=== PATIENT | female | born 1990 | race Caucasian/White ===

== ENCOUNTER 2017-02-16 17:29 | Emergency (ER) | payer SELFPAY ==
[~2017-02-16] VITALS: Ht 157.5 cm; Wt 61.0 kg
[2017-02-16] MEDS ORDERED: SODIUM CHLORIDE 0.9% 1,000 ML IV ONE (18:39)
[2017-02-16 19:44] LABS: BASOPHILS % 0.9 % (0.0-2.0); EOSINOPHILS % 0.5 % (0.0-5.0); HEMATOCRIT. 42.4 % (36.0-48.0); LYMPHOCYTES % 22.5 % (20.0-50.0); MEAN CORPUSCULAR HEMOGLOBIN 33.9 pg (28.0-32.0); MEAN PLATELET VOLUME 8.2 fl (7.4-10.4); MONOCYTES % 6.7 % (2.0-8.0); NEUTROPHILS % 69.4 % (40.0-76.0); PLATELET 246 x1000/uL (130-400); RED BLOOD CELL COUNT 4.42 mill/uL (4.2-5.4); RED CELL DISTRIBUTION WIDTH 12.4 % (11.6-14.6)
[2017-02-16 19:59] LABS: CARBON DIOXIDE 27 mEq/L (21-32); CHLORIDE 109 mEq/L (98-107)
[2017-02-16 20:00] LABS: TROPONIN I < 0.02 ng/mL (0.00-0.04)
[2017-02-16] MEDS ORDERED: POTASSIUM CHLORIDE 20MEQ TABLET SR PO NR (20:15)
[2017-02-16 20:17] LABS: HCG SCREEN NEGATIVE
[2017-02-16 21:09] VITALS: BP 138/51
== END 2017-02-16 21:19 | disposition home or self-care (01) ==
LOC: ER 18:58
DX: E87.6 Hypokalemia (principal); R55 Syncope and collapse; J45.909 Unspecified asthma, uncomplicated; F12.10 Cannabis abuse, uncomplicated
CPT/HCPCS: 36415; 80053; 84484; 84703; 85025; 93005; 99285; J7030; Z7610

== ENCOUNTER 2017-08-23 19:15 | Emergency (ER) | payer SELFPAY ==
[~2017-08-23] VITALS: Ht 152.4 cm; Wt 42.0 kg
[2017-08-23 20:18] LABS: CHLORIDE 102 mEq/L (98-107)
[2017-08-23 20:19] LABS: BASOPHILS % 0.6 % (0.0-2.0); EOSINOPHILS % 0.3 % (0.0-5.0); HEMATOCRIT. 39.8 % (36.0-48.0); HEMOGLOBIN. 14.4 g/dL (12.0-16.0); INR 1.2; LYMPHOCYTES % 18.2 % (20.0-50.0); MEAN CORPUSCULAR HEMOGLOBIN 34.1 pg (28.0-32.0); MEAN CORPUSCULAR VOLUME 93.9 fL (81.0-99.0); MEAN PLATELET VOLUME 8.2 fl (7.4-10.4); MONOCYTES % 6.3 % (2.0-8.0); NEUTROPHILS % 74.6 % (40.0-76.0); PLATELET 315 x1000/uL (130-400); RED BLOOD CELL COUNT 4.24 mill/uL (4.2-5.4); RED CELL DISTRIBUTION WIDTH 11.3 % (11.6-14.6)
[2017-08-23 20:20] LABS: HCG SCREEN POSITIVE
[2017-08-23] MEDS ORDERED: SODIUM CHLORIDE 0.9% 1,000 ML IV ONE (20:23)
[2017-08-23] MEDS ORDERED: ONDANSETRON HCL 4MG/2ML VIAL IV ONE (20:30)
[2017-08-23] MEDS ORDERED: MAGNESIUM/ALUMINUM HYDROXIDE/SIMETHICONE 30ML UDC PO ONE (22:45)
[2017-08-23] MEDS ORDERED: FAMOTIDINE 20MG TABLET PO ONE (22:45)
[2017-08-24 00:22] LABS: CLARITY URINE CLOUDY (CLEAR); COLOR URINE YELLOW (YELLOW); KETONES URINE 4+ (NEGATIVE); LEUKOCYTE ESTERASE URINE NEGATIVE (NEGATIVE); NITRITE URINE NEGATIVE (NEGATIVE); OCCULT BLOOD URINE NEGATIVE (NEGATIVE); PH URINE 5.5 (4.5-8.0); PROTEIN URINE NEGATIVE (NEGATIVE); SPECIFIC GRAVITY URINE 1.027 (1.005-1.030); UROBILINOGEN URINE 0.2 E.U./dL (0.2-1.0)
[2017-08-24 01:00] VITALS: BP 119/71
== END 2017-08-24 01:15 | disposition home or self-care (01) ==
LOC: ER 20:08
DX: O21.9 Vomiting of pregnancy, unspecified (principal); O99.511 Diseases of the respiratory system complicating pregnancy, first trimester; J45.909 Unspecified asthma, uncomplicated; R35.8 Other polyuria; Z3A.01 Less than 8 weeks gestation of pregnancy
CPT/HCPCS: 36415; 76801; 80053; 81003; 83690; 84702; 84703; 85025; 85610; 86850; 86900; 86901; 96361; 96374; 99285; J2405; J7030; Z7610

== ENCOUNTER 2019-03-24 16:16 | Emergency (ER) | payer MEDICAID ==
[~2019-03-24] VITALS: Ht 160 cm; Wt 50.0 kg
[2019-03-24 22:42] LABS: BASOPHILS % 0.3 % (0.0-2.0); EOSINOPHILS % 0.1 % (0.0-5.0); HEMATOCRIT. 41.1 % (36.0-48.0); HEMOGLOBIN. 14.1 g/dL (12.0-16.0); LYMPHOCYTES % 16.4 % (20.0-50.0); MEAN CORPUSCULAR HEMOGLOBIN 29.8 pg (28.0-32.0); MEAN CORPUSCULAR VOLUME 86.5 fL (81.0-99.0); NEUTROPHILS % 75.2 % (40.0-76.0); PLATELET 261 x1000/uL (130-400); RED BLOOD CELL COUNT 4.75 mill/uL (4.2-5.4); RED CELL DISTRIBUTION WIDTH 14.5 % (11.6-14.6)
[2019-03-24 22:49] LABS: CHLORIDE 103 mEq/L (98-107)
[2019-03-25 00:17] LABS: CLARITY URINE CLOUDY (CLEAR); COLOR URINE DARK YELLOW (YELLOW); KETONES URINE 4+ (NEGATIVE); LEUKOCYTE ESTERASE URINE TRACE (NEGATIVE); NITRITE URINE NEGATIVE (NEGATIVE); OCCULT BLOOD URINE NEGATIVE (NEGATIVE); PH URINE 5.5 (4.5-8.0); PROTEIN URINE 1+ (NEGATIVE); SPECIFIC GRAVITY URINE 1.037 (1.005-1.030)
[2019-03-25] MEDS ORDERED: ONDANSETRON 4MG ODT PO ONE (00:30)
[2019-03-25] MEDS ORDERED: NITROFURANTOIN 100MG M/M CAPSULE PO ONE (01:15)
[2019-03-25] MEDS ORDERED: ACETAMINOPHEN 325MG TABLET PO ONE (04:45)
[2019-03-25 04:52] VITALS: BP 120/74
== END 2019-03-25 04:59 | disposition home or self-care (01) ==
LOC: ER 16:16
DX: O26.891 Other specified pregnancy related conditions, first trimester (principal); R10.33 Periumbilical pain; H91.3 Deaf nonspeaking, not elsewhere classified; Z3A.01 Less than 8 weeks gestation of pregnancy
CPT/HCPCS: 36415; 76830; 76856; 80053; 81003; 81025; 83690; 84702; 85025; 99284; Q0162; Z7610